=== PATIENT | female | born 1995 | race Caucasian/White ===

== ENCOUNTER 2020-02-17 22:21 | Emergency (ER) | payer BC ==
[2020-02-17 22:26] VITALS: BP 137/82; PULSE 101
--- NOTE | 2020-02-17 22:51 | EDM.PDOC ---
ED HPI GENERAL MEDICAL PROBLEM - General Chief Complaint: General Stated Complaint: electric shock Time Seen by Provider: 02/17/20 22:30 Source of Information: Reports: Patient History Limitations: Reports: No Limitations - History of Present Illness INITIAL COMMENTS - FREE TEXT/NARRATIVE: She is brought to the ED by ambulance after receiving an electrical shock. Apparently a tree fell onto her truck. She went to check on the truck not realizing there was a downed power line touching it and she felt a sudden shock. She was reaching for the truck when she felt the shock in her hands. She fell down striking her forehead on the truck. She was able to get back to her porch and then her boyfriend helped her inside and called the ambulance. She had a brief loss of consciousness and feels like her finger tips are burned. No chest pain or tightness. No shortness of breath. No dizziness or light headedness. Legs feel a little weak. No other complaints. - Related Data Allergies Allergy/AdvReac Type Severity Reaction Status Date / Time No Known Allergies Allergy Verified 02/17/20 22:23 Home Meds: Home Meds norgestimate-ethinyl estradioL [Tri-Linyah Tablet] 1 tab PO DAILY 02/17/20 [ History] Past Medical History - Past Surgical History HEENT Surgical History: Reports: Tonsillectomy Social & Family History - Tobacco Use Smoking Status *Q: Never Smoker - Caffeine Use Caffeine Use: Reports: Soda, Tea - Recreational Drug Use Recreational Drug Use: No ED ROS GENERAL - Review of Systems Review Of Systems: See Below Constitutional: Denies: Fever, Chills HEENT: Denies: Ear Pain, Eye Discharge, Eye Pain, Hearing Loss, Nosebleed, Rhinitis, Sinus Problem, Throat Pain, Vision Change Respiratory: Denies: Shortness of Breath, Cough Cardiovascular: Denies: Chest Pain, Lightheadedness, Palpitations Endocrine: Denies: Fatigue GI/Abdominal: Denies: Abdominal Pain, Nausea, Vomiting : Denies: Dysuria, Frequency, Urgency Musculoskeletal: Reports: Muscle Pain Skin: Reports: Burn(s) (slight burning senstion in the finger tips). Denies: Rash Neurological: Denies: Confusion, Dizziness, Headache, Numbness, Seizure, Syncope , Tingling Psychiatric: Denies: Anxiety, Confusion, Depression Hematologic/Lymphatic: Denies: Anemia, Easy Bleeding ED EXAM, GENERAL - Physical Exam Exam: See Below Exam Limited By: No Limitations General Appearance: Alert, WD/WN, No Apparent Distress Eye Exam: Bilateral Eye: EOMI, Normal Inspection, PERRL Ears: Normal External Exam, Normal Canal, Hearing Grossly Normal, Normal TMs Nose: Normal Inspection, Normal Mucosa, No Blood Throat/Mouth: Normal Inspection, Normal Lips, Normal Teeth, Normal Gums, Normal Oropharynx, Normal Voice Head: Atraumatic, Normocephalic Neck: Supple, Non-Tender, Full Range of Motion Respiratory/Chest: No Respiratory Distress, Lungs Clear, Normal Breath Sounds Cardiovascular: Normal Peripheral Pulses, Regular Rate, Rhythm, No Murmur GI/Abdominal: Normal Bowel Sounds, Soft, Non-Tender, No Mass Neurological: Alert, Oriented, CN II-XII Intact, Normal Cognition, No Motor/ Sensory Deficits Psychiatric: Normal Affect, Normal Mood Skin Exam: Warm, Dry, Intact, Normal Color, No Rash Course - Vital Signs Last Recorded V/S: Last Vital Signs Temp 36.9 C 02/17/20 22:24 Pulse 101 H 02/17/20 22:24 Resp 13 02/17/20 22:24 BP 137/82 02/17/20 22:24 Pulse Ox 98 02/17/20 22:24 - Radiology Interpretation Free Text/Narrative:: EKG: Normal sinus rhythm. No evidence of ischemia. Departure - Departure Time of Disposition: 22:55 Disposition: Home, Self-Care 01 Condition: Good Clinical Impression: Electric shock - Discharge Information *PRESCRIPTION DRUG MONITORING PROGRAM REVIEWED*: Not Applicable *COPY OF PRESCRIPTION DRUG MONITORING REPORT IN PATIENT BIRDIE: Not Applicable Instructions: Electric Shock Injury Referrals: PCP,None [Primary Care Provider] - Forms: ED Department Discharge Additional Instructions: Monitor urine for change in color. Follow up in clinic if this occurs. Follow up with chest pain, or irregular heartbeats. No work tomorrow [id number]. Return to work [id number]. Sepsis Event Note - Evaluation Sepsis Screening Result: No Definite Risk - Focused Exam Vital Signs: Vital Signs Temp Pulse Resp BP Pulse Ox 02/17/20 22:24 36.9 C 101 H 13 137/82 98 Date Exam was Performed: 02/18/20 Time Exam was Performed: 07:49
== END 2020-02-17 23:05 | disposition home or self-care (01) ==
LOC: LL.ED 22:21
DX: T75.4XXA Electrocution, initial encounter (principal)
CPT/HCPCS: 99283